=== PATIENT | male | born 1930 | race Caucasian/White ===

== ENCOUNTER → 2017-02-22 | Outpatient (CLI) | payer MEDICARE ==
--- NOTE | 2017-02-22 12:24 | REP ---
CT BRAIN WITHOUT CONTRAST: 02/22/2017. CLINICAL HISTORY: Mild cognitive impairment. FINDINGS: There are no prior studies. The noncontrast soft tissue and bone windows are reviewed for each slice level. Ventricles are midline, symmetric and dilated. They are proportionate to the cerebral atrophy which is moderate for age. Basal ganglia is symmetric. There is some periventricular hypodense white matter change bilaterally about the cerebral hemispheres consistent with chronic small vessel white matter ischemic changes. Atrophy is greatest in the temporal lobes. There is no vascular territory infarct, intracranial hemorrhage, mass or mass effect. Brainstem unremarkable. Cerebellum shows diffuse atrophy in a symmetric fashion. Basal cisterns intact. Mastoids and visualized sinuses are clear. There is deviation of the septum towards the right. The skull base and calvarium show no fracture or focal lesion. IMPRESSION: 1. Ventriculomegaly with moderate atrophy in proportion and with diffuse chronic white matter small vessel ischemic changes. Cerebellar atrophy noted as well. There is no acute infarct, hemorrhage, mass, mass effect or edema. 2. Brainstem unremarkable. Basal cisterns intact. Sinuses, mastoids, skull base and calvarium without acute finding. Signed by Kev Mendiola MD 02/22/2017 06:06 P
== END ==
LOC: M RAD 08:35
PROVIDERS: ATTEND Nurse Practitioner Adult Health
DX: G31.84 Mild cognitive impairment of uncertain or unknown etiology (principal)

== ENCOUNTER → 2019-12-25 | Outpatient (REF) | payer MEDICARE | LOC: M LAB REF 10:26 | PROVIDERS: ATTEND Dermatology | DX: L90.5 Scar conditions and fibrosis of skin (principal); L57.8 Other skin changes due to chronic exposure to nonionizing radiation ==

== ENCOUNTER 2021-11-25 00:09 | Inpatient (IN) | payer MEDICARE ==
[~2021-11-25] VITALS: Ht 170.2 cm; Wt 80.6 kg
[2021-11-25] MEDS ORDERED: ROSU20TA5 PO (00:45)
[2021-11-25] MEDS ORDERED: HYDR12.55 PO (00:45)
[2021-11-25] MEDS ORDERED: POTA20EL PO (00:45)
[2021-11-25] MEDS ORDERED: LOSA25TA13 PO (00:45)
[2021-11-25] MEDS ORDERED: ASPI81CH33 PO (00:45)
[2021-11-25] MEDS ORDERED: PROP20TA72 PO (00:45)
[2021-11-25] MEDS ORDERED: RIVA1CAP7 PO (00:45)
[2021-11-25] MEDS ORDERED: FLEC25TA PO (00:45)
[2021-11-25] MEDS ORDERED: NS 500 ML IV ONE (07:10)
[2021-11-25] MEDS ORDERED: NS 1,000 ML IV SCH (07:10)
[2021-11-25] MEDS ORDERED: ISOVUE-370 76% 100ML VIAL As Ordered ONE (07:35)
[2021-11-25 07:42] LABS: BASO # 0.1 10^3/uL (0.0-0.2); BASO % 0.7 % (0.0-1.0); EOS # 0.6 10^3/uL (0.0-0.5); EOS % 6.4 % (0.0-3.0); HEMATOCRIT 37.3 % (42.0-52.0); HEMOGLOBIN 12.7 g/dl (13.5-17.5); LYMPH # 1.7 10^3/uL (1.5-5.0); LYMPH % 19.6 % (24.0-44.0); MEAN CORPUSCULAR HEMOGLOBIN 30.9 pg (27.0-33.0); MEAN CORPUSCULAR VOLUME 90.8 fl (80.0-96.0); MONO # 0.8 10^3/uL (0.0-0.8); MONO % 9.6 % (2.0-8.0); NEUTROPHILS # 5.4 10^3/uL (1.5-8.5); NEUTROPHILS % 63.3 % (36.0-66.0); PLATELET COUNT, AUTOMATED 172 10^3/uL (150-450); RED BLOOD COUNT 4.11 10^6/uL (4.30-6.10); WHITE BLOOD COUNT 8.6 10^3/uL (4.0-10.0)
[2021-11-25 07:53] LABS: INR 1.06; PARTIAL THROMBOPLASTIN TIME 35.7 SECONDS (25.9-37.0); PROTHROMBIN TIME 14.2 SECONDS (12.7-14.5)
[2021-11-25] MEDS ORDERED: LIDOCAINE 2% 5ML JELLY UROJET TOP ONE (08:05)
[2021-11-25 08:20] LABS: CK-MB VALUE MASS 1.6 NG/ML (<3.6); MB/CK RELATIVE INDEX 0.63 (< OR =4)
[2021-11-25] MEDS ORDERED: ASPIRIN 81 MG CHEW TABLET PO SCH (09:00)
[2021-11-25 09:30] LABS: ALBUMIN 3.6 GM/DL (3.2-5.2); ALT/SGPT 24 U/L (12-78); BILIRUBIN,DIRECT 0.2 MG/DL (0.0-0.2); BILIRUBIN,TOTAL 0.5 MG/DL (0.2-1.0); BLOOD UREA NITROGEN 20 MG/DL (7-18); CALCIUM LEVEL 9.2 MG/DL (8.8-10.2); CARBON DIOXIDE LEVEL 30 MEQ/L (21-32); CHLORIDE LEVEL 107 MEQ/L (98-107); CREATININE FOR GFR 1.01 MG/DL (0.70-1.30); GLOMERULAR FILTRATION RATE > 60.0 (>35); GLUCOSE, FASTING 96 MG/DL (70-100); LIPASE 83 U/L (73-393); POTASSIUM SERUM 3.6 MEQ/L (3.5-5.1); SODIUM LEVEL 142 MEQ/L (136-145); TOTAL PROTEIN 6.3 GM/DL (6.4-8.2)
[2021-11-25] MEDS ORDERED: MED REC COMMENT (10:43)
[2021-11-25] MEDS ORDERED: MULTLIQ7 PO (10:43)
[2021-11-25] MEDS ORDERED: HOME MED LIST COMPLETE! XX SCH (10:55)
[2021-11-25 11:25] LABS: RSV AMPLIFICATION NEGATIVE (NEGATIVE)
[2021-11-25] MEDS ORDERED: ACETAMINOPHEN TAB 650MG DOSE (2X325MG) PO PRN (11:30)
[2021-11-25] MEDS ORDERED: PILL CUTTER 1 EACH XX PRN (12:30)
[2021-11-25 14:25] VITALS: BP 159/88
[2021-11-25] MEDS: POTASSIUM CHLORIDE 10% LIQ 20 MEQ/15 ML UDC PO SCH (15:30)
[2021-11-25] MEDS: hydroCHLOROthiazide 12.5 MG CAPSULE PO SCH (15:30)
[2021-11-25] MEDS: FLECAINIDE 50MG TABLET PO SCH (15:30)
[2021-11-25] MEDS: PROPRANOLOL 20 MG TAB PO SCH (15:30)
[2021-11-25] MEDS: ASPIRIN 325 MG TAB PO SCH (15:31)
[2021-11-25 20:16] VITALS: BP 135/98
[2021-11-25] MEDS: ROSUVASTATIN 10 MG TAB (CRESTOR) PO SCH (21:55)
[2021-11-25] MEDS: LOSARTAN 25 MG TAB PO SCH (21:58)
[2021-11-25 23:51] VITALS: BP 134/69
[2021-11-26] MEDS: PROPRANOLOL 20 MG TAB PO SCH ×3 (00:08→21:00)
[2021-11-26] MEDS: FLECAINIDE 50MG TABLET PO SCH ×3 (00:08→21:00)
[2021-11-26 04:41] VITALS: BP 135/74
[2021-11-26 06:24] LABS: HEMATOCRIT 33.9 % (42.0-52.0); HEMOGLOBIN 11.6 g/dl (13.5-17.5); MEAN CORPUSCULAR HEMOGLOBIN 31.2 pg (27.0-33.0); MEAN CORPUSCULAR HGB CONC 34.2 g/dl (32.0-36.5); MEAN CORPUSCULAR VOLUME 91.1 fl (80.0-96.0); PLATELET COUNT, AUTOMATED 177 10^3/uL (150-450); RED BLOOD COUNT 3.72 10^6/uL (4.30-6.10); WHITE BLOOD COUNT 11.3 10^3/uL (4.0-10.0)
[2021-11-26 06:45] LABS: BLOOD UREA NITROGEN 17 MG/DL (7-18); CALCIUM LEVEL 9.4 MG/DL (8.8-10.2); CARBON DIOXIDE LEVEL 31 MEQ/L (21-32); CHLORIDE LEVEL 108 MEQ/L (98-107); CREATININE FOR GFR 0.99 MG/DL (0.70-1.30); GLOMERULAR FILTRATION RATE > 60.0 (>35); GLUCOSE, FASTING 99 MG/DL (70-100); MAGNESIUM LEVEL 2.2 MG/DL (1.8-2.4); POTASSIUM SERUM 3.8 MEQ/L (3.5-5.1); SODIUM LEVEL 141 MEQ/L (136-145)
[2021-11-26 07:54] LABS: BASO % 0.3 % (0.0-1.0); EOS # 0.6 10^3/uL (0.0-0.5); EOS % 5.6 % (0.0-3.0); LYMPH # 1.6 10^3/uL (1.5-5.0); LYMPH % 13.5 % (24.0-44.0); MONO # 1.1 10^3/uL (0.0-0.8); MONO % 9.4 % (2.0-8.0); NEUTROPHILS # 8.1 10^3/uL (1.5-8.5); NEUTROPHILS % 70.9 % (36.0-66.0)
[2021-11-26 08:20] VITALS: BP 132/66
[2021-11-26] MEDS: ENOXAPARIN 40MG/0.4ML SYRINGE (J1650 PER 10MG) SC SCH (09:00)
[2021-11-26] MEDS: NYSTATIN 100,000 UNITS/GM TOPICAL PWD 15 GM TOP SCH ×2 (09:00→23:33)
[2021-11-26] MEDS: hydroCHLOROthiazide 12.5 MG CAPSULE PO SCH (09:00)
[2021-11-26] MEDS: POTASSIUM CHLORIDE 10% LIQ 20 MEQ/15 ML UDC PO SCH (09:00)
[2021-11-26] MEDS: ASPIRIN 325 MG TAB PO SCH (09:00)
[2021-11-26] MEDS: ASPIRIN 300 MG SUPP PR SCH (11:00)
[2021-11-26 12:00] VITALS: BP 165/72
[2021-11-26 17:47] VITALS: BP 150/80
[2021-11-26] MEDS ORDERED: ACETAMINOPHEN 650 MG SUPP PR ONE (18:45)
[2021-11-26 20:00] VITALS: BP 168/92
[2021-11-26] MEDS: ROSUVASTATIN 10 MG TAB (CRESTOR) PO SCH (21:00)
[2021-11-26] MEDS: LOSARTAN 25 MG TAB PO SCH (21:00)
[2021-11-26 23:34] VITALS: BP 163/76
[2021-11-26] MEDS: PIPERACILLIN/TAZOBACTAM SOD 3.375 GM in D5W MINI-BAG PLUS 50 ML IV SCH (23:34)
[2021-11-27] MEDS ORDERED: METOPROLOL 5 MG/5 ML VIAL IV ONE (01:00)
[2021-11-27 01:41] VITALS: BP 143/78
[2021-11-27 03:59] VITALS: BP 158/84
[2021-11-27] MEDS: PIPERACILLIN/TAZOBACTAM SOD 3.375 GM in D5W MINI-BAG PLUS 50 ML IV SCH ×4 (04:39→21:21)
[2021-11-27 05:58] LABS: HEMATOCRIT 35.6 % (42.0-52.0); HEMOGLOBIN 12.2 g/dl (13.5-17.5); MEAN CORPUSCULAR HEMOGLOBIN 30.9 pg (27.0-33.0); MEAN CORPUSCULAR HGB CONC 34.3 g/dl (32.0-36.5); MEAN CORPUSCULAR VOLUME 90.1 fl (80.0-96.0); PLATELET COUNT, AUTOMATED 165 10^3/uL (150-450); RED BLOOD COUNT 3.95 10^6/uL (4.30-6.10); WHITE BLOOD COUNT 10.9 10^3/uL (4.0-10.0)
[2021-11-27 06:26] LABS: BLOOD UREA NITROGEN 18 MG/DL (7-18); CALCIUM LEVEL 9.2 MG/DL (8.8-10.2); CARBON DIOXIDE LEVEL 30 MEQ/L (21-32); CHLORIDE LEVEL 105 MEQ/L (98-107); GLOMERULAR FILTRATION RATE > 60.0 (>35); GLUCOSE, FASTING 113 MG/DL (70-100); POTASSIUM SERUM 3.5 MEQ/L (3.5-5.1); SODIUM LEVEL 140 MEQ/L (136-145)
[2021-11-27 08:55] VITALS: BP 146/80
[2021-11-27] MEDS: ENOXAPARIN 40MG/0.4ML SYRINGE (J1650 PER 10MG) SC SCH (08:58)
[2021-11-27] MEDS: ASPIRIN 300 MG SUPP PR SCH (08:58)
[2021-11-27] MEDS: NYSTATIN 100,000 UNITS/GM TOPICAL PWD 15 GM TOP SCH ×2 (08:58→21:18)
[2021-11-27] MEDS: POTASSIUM CHLORIDE 10% LIQ 20 MEQ/15 ML UDC PO SCH (09:00)
[2021-11-27] MEDS: PROPRANOLOL 20 MG TAB PO SCH (09:00)
[2021-11-27] MEDS: FLECAINIDE 50MG TABLET PO SCH (09:00)
[2021-11-27] MEDS: hydroCHLOROthiazide 12.5 MG CAPSULE PO SCH (09:00)
[2021-11-27] MEDS ORDERED: ACETAMINOPHEN 650 MG SUPP PR PRN (09:05)
[2021-11-27] MEDS: D5W/0.45% SODIUM CHLORIDE 1,000 ML IV SCH (09:49)
[2021-11-27 12:27] VITALS: BP 144/62
[2021-11-27 15:53] LABS: BASO % 0.3 % (0.0-1.0); EOS # 0.2 10^3/uL (0.0-0.5); EOS % 2.2 % (0.0-3.0); HEMATOCRIT 35.4 % (42.0-52.0); HEMOGLOBIN 12.1 g/dl (13.5-17.5); LYMPH # 1.2 10^3/uL (1.5-5.0); LYMPH % 12.6 % (24.0-44.0); MEAN CORPUSCULAR HEMOGLOBIN 30.7 pg (27.0-33.0); MEAN CORPUSCULAR HGB CONC 34.2 g/dl (32.0-36.5); MEAN CORPUSCULAR VOLUME 89.8 fl (80.0-96.0); MONO % 10.5 % (2.0-8.0); NEUTROPHILS # 6.9 10^3/uL (1.5-8.5); NEUTROPHILS % 74.1 % (36.0-66.0); PLATELET COUNT, AUTOMATED 146 10^3/uL (150-450); RED BLOOD COUNT 3.94 10^6/uL (4.30-6.10); WHITE BLOOD COUNT 9.3 10^3/uL (4.0-10.0)
[2021-11-27 16:23] VITALS: BP 153/70
[2021-11-27] MEDS: BISACODYL 10 MG SUPP PR PRN (16:29)
[2021-11-27 19:35] VITALS: BP 157/71
[2021-11-28] VITALS: BP 139/78
[2021-11-28] MEDS: D5W/0.45% SODIUM CHLORIDE 1,000 ML IV SCH ×2 (02:04→09:06)
[2021-11-28 04:00] VITALS: BP 129/65
[2021-11-28] MEDS: PIPERACILLIN/TAZOBACTAM SOD 3.375 GM in D5W MINI-BAG PLUS 50 ML IV SCH ×4 (04:15→21:18)
[2021-11-28 06:26] LABS: HEMATOCRIT 32.6 % (42.0-52.0); HEMOGLOBIN 11.1 g/dl (13.5-17.5); MEAN CORPUSCULAR HEMOGLOBIN 30.7 pg (27.0-33.0); MEAN CORPUSCULAR VOLUME 90.3 fl (80.0-96.0); PLATELET COUNT, AUTOMATED 132 10^3/uL (150-450); RED BLOOD COUNT 3.61 10^6/uL (4.30-6.10); WHITE BLOOD COUNT 8.4 10^3/uL (4.0-10.0)
[2021-11-28 06:47] LABS: BLOOD UREA NITROGEN 13 MG/DL (7-18); CALCIUM LEVEL 8.8 MG/DL (8.8-10.2); CARBON DIOXIDE LEVEL 29 MEQ/L (21-32); CHLORIDE LEVEL 108 MEQ/L (98-107); GLOMERULAR FILTRATION RATE > 60.0 (>35); GLUCOSE, FASTING 135 MG/DL (70-100); POTASSIUM SERUM 3.2 MEQ/L (3.5-5.1); SODIUM LEVEL 142 MEQ/L (136-145)
[2021-11-28 08:00] VITALS: BP 133/62
[2021-11-28] MEDS: KCL 10MEQ/100ML SWI (KRUN) 10 MEQ in IV 1 EA IV SCH ×3 (09:04→12:08)
[2021-11-28] MEDS: NYSTATIN 100,000 UNITS/GM TOPICAL PWD 15 GM TOP SCH ×2 (09:05→21:18)
[2021-11-28] MEDS: ASPIRIN 300 MG SUPP PR SCH (09:06)
[2021-11-28] MEDS: ENOXAPARIN 40MG/0.4ML SYRINGE (J1650 PER 10MG) SC SCH (09:07)
[2021-11-28] MEDS ORDERED: POTASSIUM CHLORIDE 10MEQ SR TABLET PO ONE (11:40)
[2021-11-28] MEDS ORDERED: POTASSIUM CHLORIDE 10% LIQ 20 MEQ/15 ML UDC PO ONE (12:00)
[2021-11-28 16:00] VITALS: BP 137/78
[2021-11-28 16:41] LABS: BLOOD UREA NITROGEN 13 MG/DL (7-18); CALCIUM LEVEL 8.7 MG/DL (8.8-10.2); CARBON DIOXIDE LEVEL 29 MEQ/L (21-32); CHLORIDE LEVEL 106 MEQ/L (98-107); CREATININE FOR GFR 1.06 MG/DL (0.70-1.30); GLOMERULAR FILTRATION RATE > 60.0 (>35); GLUCOSE, FASTING 115 MG/DL (70-100); POTASSIUM SERUM 3.7 MEQ/L (3.5-5.1); SODIUM LEVEL 139 MEQ/L (136-145)
[2021-11-28 20:25] VITALS: BP 137/72
[2021-11-28] MEDS: ROSUVASTATIN 10 MG TAB (CRESTOR) PO SCH (21:17)
[2021-11-28] MEDS: PROPRANOLOL 20 MG TAB PO SCH (21:17)
[2021-11-28] MEDS: FLECAINIDE 50MG TABLET PO SCH (21:18)
[2021-11-28] MEDS: LOSARTAN 25 MG TAB PO SCH (21:18)
[2021-11-29] VITALS (9 sets, daily range): BP systolic 124–181; BP diastolic 62–99
[2021-11-29] MEDS: PIPERACILLIN/TAZOBACTAM SOD 3.375 GM in D5W MINI-BAG PLUS 50 ML IV SCH ×4 (03:09→21:27)
[2021-11-29 09:22] LABS: HEMATOCRIT 33.5 % (42.0-52.0); HEMOGLOBIN 11.5 g/dl (13.5-17.5); MEAN CORPUSCULAR HEMOGLOBIN 31.3 pg (27.0-33.0); MEAN CORPUSCULAR HGB CONC 34.3 g/dl (32.0-36.5); MEAN CORPUSCULAR VOLUME 91.3 fl (80.0-96.0); PLATELET COUNT, AUTOMATED 161 10^3/uL (150-450); RED BLOOD COUNT 3.67 10^6/uL (4.30-6.10); WHITE BLOOD COUNT 7.8 10^3/uL (4.0-10.0)
[2021-11-29 09:42] LABS: BLOOD UREA NITROGEN 14 MG/DL (7-18); CALCIUM LEVEL 9.1 MG/DL (8.8-10.2); CARBON DIOXIDE LEVEL 29 MEQ/L (21-32); CHLORIDE LEVEL 109 MEQ/L (98-107); CREATININE FOR GFR 1.05 MG/DL (0.70-1.30); GLOMERULAR FILTRATION RATE > 60.0 (>35); GLUCOSE, FASTING 102 MG/DL (70-100); MAGNESIUM LEVEL 2.2 MG/DL (1.8-2.4); POTASSIUM SERUM 3.7 MEQ/L (3.5-5.1); SODIUM LEVEL 144 MEQ/L (136-145)
[2021-11-29] MEDS: ASPIRIN 81 MG CHEW TABLET PO SCH (10:03)
[2021-11-29] MEDS: FLECAINIDE 50MG TABLET PO SCH ×2 (10:03→20:22)
[2021-11-29] MEDS: PROPRANOLOL 20 MG TAB PO SCH ×2 (10:04→20:22)
[2021-11-29] MEDS: NYSTATIN 100,000 UNITS/GM TOPICAL PWD 15 GM TOP SCH ×2 (10:04→20:22)
[2021-11-29] MEDS: D5W/0.45% SODIUM CHLORIDE 1,000 ML IV SCH ×2 (11:35→21:26)
[2021-11-29] MEDS: ACETAMINOPHEN TAB 650MG DOSE (2X325MG) PO PRN (11:38)
[2021-11-29] MEDS ORDERED: ceFAZolin 2 GM/D5W 50 ML IV BAG (J0690 PER 500MG) As Ordered ONE (16:15)
[2021-11-29] MEDS ORDERED: TRANEXAMIC ACID 100 MG/ML 10ML VIAL As Ordered ONE (16:15)
[2021-11-29] MEDS ORDERED: VANCOMYCIN 1000MG/20ML VIAL As Ordered ONE (16:16)
[2021-11-29] MEDS ORDERED: propofoL 200 MG/20 ML VIAL As Ordered ONE (17:21)
[2021-11-29] MEDS ORDERED: BUPIVACAINE HCL 0.5% 30ML VIAL As Ordered ONE (17:21)
[2021-11-29] MEDS ORDERED: KETAMINE HCL 200 MG/20 ML VIAL As Ordered ONE (17:21)
[2021-11-29] MEDS ORDERED: fentaNYL 100 MCG/2 ML INJECTION As Ordered ONE (17:21)
[2021-11-29] MEDS ORDERED: ACETAMINOPHEN 1000MG 100ML IV BTL (OFIRMEV) (J0131 PER 10MG) As Ordered ONE (17:21)
[2021-11-29] MEDS ORDERED: oxyCODONE 5MG TAB PO PRN (19:55)
[2021-11-29] MEDS ORDERED: fentaNYL 100 MCG/2 ML INJECTION IV PRN (19:55)
[2021-11-29] MEDS ORDERED: ONDANSETRON 4MG/2ML VIAL IV PRN (19:55)
[2021-11-29] MEDS ORDERED: LR 1,000 ML IV SCH (19:55)
[2021-11-29] MEDS: LOSARTAN 25 MG TAB PO SCH (20:22)
[2021-11-29] MEDS: ROSUVASTATIN 10 MG TAB (CRESTOR) PO SCH (20:22)
[2021-11-30] VITALS: BP 118/74
[2021-11-30] MEDS ORDERED: KETOROLAC 30 MG/ML 1ML VIAL IV PRN (01:25)
[2021-11-30] MEDS ORDERED: MORPHINE 2 MG/ML 1ML VIAL IV PRN (01:25)
[2021-11-30] MEDS: PIPERACILLIN/TAZOBACTAM SOD 3.375 GM in D5W MINI-BAG PLUS 50 ML IV SCH ×4 (03:23→20:43)
[2021-11-30 04:00] VITALS: BP 104/51
[2021-11-30 06:29] LABS: HEMATOCRIT 27.9 % (42.0-52.0); MEAN CORPUSCULAR HEMOGLOBIN 31.3 pg (27.0-33.0); MEAN CORPUSCULAR HGB CONC 34.1 g/dl (32.0-36.5); MEAN CORPUSCULAR VOLUME 91.8 fl (80.0-96.0); PLATELET COUNT, AUTOMATED 135 10^3/uL (150-450); RED BLOOD COUNT 3.04 10^6/uL (4.30-6.10); WHITE BLOOD COUNT 8.3 10^3/uL (4.0-10.0)
[2021-11-30] MEDS: D5W/0.45% SODIUM CHLORIDE 1,000 ML IV SCH (06:33)
[2021-11-30 06:34] LABS: HEMOGLOBIN 9.5 g/dl (13.5-17.5)
[2021-11-30 06:48] LABS: BLOOD UREA NITROGEN 18 MG/DL (7-18); CALCIUM LEVEL 8.4 MG/DL (8.8-10.2); CARBON DIOXIDE LEVEL 28 MEQ/L (21-32); CHLORIDE LEVEL 108 MEQ/L (98-107); CREATININE FOR GFR 1.19 MG/DL (0.70-1.30); GLOMERULAR FILTRATION RATE > 60.0 (>35); GLUCOSE, FASTING 159 MG/DL (70-100); POTASSIUM SERUM 3.1 MEQ/L (3.5-5.1); SODIUM LEVEL 141 MEQ/L (136-145)
[2021-11-30 08:00] VITALS: BP 135/67
[2021-11-30] MEDS ORDERED: POTASSIUM CHLORIDE 10% LIQ 20 MEQ/15 ML UDC PO ONE (08:00)
[2021-11-30] MEDS: FLECAINIDE 50MG TABLET PO SCH ×2 (09:15→20:42)
[2021-11-30] MEDS: ASPIRIN 81 MG CHEW TABLET PO SCH (09:15)
[2021-11-30] MEDS: NYSTATIN 100,000 UNITS/GM TOPICAL PWD 15 GM TOP SCH ×2 (09:16→20:43)
[2021-11-30] MEDS: PROPRANOLOL 20 MG TAB PO SCH ×2 (09:20→20:49)
[2021-11-30] MEDS ORDERED: MOM 30ML SUSPENSION UDC PO PRN (10:55)
[2021-11-30] MEDS ORDERED: MIRALAX *UNIT DOSE* 17GM PACKET PO PRN (10:55)
[2021-11-30] MEDS ORDERED: SENOKOT S TAB PO PRN (10:55)
[2021-11-30] MEDS: BISACODYL 10 MG SUPP PR PRN (11:08)
[2021-11-30 12:08] LABS: HEMATOCRIT 27.3 % (42.0-52.0); HEMOGLOBIN 9.6 g/dl (13.5-17.5)
[2021-11-30 14:00] VITALS: BP 113/56
[2021-11-30] MEDS: ROSUVASTATIN 10 MG TAB (CRESTOR) PO SCH (20:40)
[2021-11-30] MEDS: ENOXAPARIN 40MG/0.4ML SYRINGE (J1650 PER 10MG) SC SCH (20:41)
[2021-11-30] MEDS: LOSARTAN 25 MG TAB PO SCH (20:43)
[2021-11-30 23:00] VITALS: BP 112/80
[2021-12-01] MEDS: PIPERACILLIN/TAZOBACTAM SOD 3.375 GM in D5W MINI-BAG PLUS 50 ML IV SCH ×4 (04:49→22:23)
[2021-12-01 08:52] LABS: BASO % 0.2 % (0.0-1.0); EOS # 0.5 10^3/uL (0.0-0.5); EOS % 5.2 % (0.0-3.0); HEMATOCRIT 28.4 % (42.0-52.0); HEMOGLOBIN 9.6 g/dl (13.5-17.5); LYMPH # 1.2 10^3/uL (1.5-5.0); LYMPH % 12.6 % (24.0-44.0); MEAN CORPUSCULAR HEMOGLOBIN 31.2 pg (27.0-33.0); MEAN CORPUSCULAR HGB CONC 33.8 g/dl (32.0-36.5); MEAN CORPUSCULAR VOLUME 92.2 fl (80.0-96.0); MONO % 9.7 % (2.0-8.0); NEUTROPHILS # 7.1 10^3/uL (1.5-8.5); NEUTROPHILS % 71.8 % (36.0-66.0); PLATELET COUNT, AUTOMATED 151 10^3/uL (150-450); RED BLOOD COUNT 3.08 10^6/uL (4.30-6.10); WHITE BLOOD COUNT 9.9 10^3/uL (4.0-10.0)
[2021-12-01 09:09] LABS: BLOOD UREA NITROGEN 22 MG/DL (7-18); CALCIUM LEVEL 8.7 MG/DL (8.8-10.2); CARBON DIOXIDE LEVEL 27 MEQ/L (21-32); CHLORIDE LEVEL 111 MEQ/L (98-107); CREATININE FOR GFR 1.14 MG/DL (0.70-1.30); GLOMERULAR FILTRATION RATE > 60.0 (>35); GLUCOSE, FASTING 129 MG/DL (70-100); MAGNESIUM LEVEL 2.3 MG/DL (1.8-2.4); POTASSIUM SERUM 3.4 MEQ/L (3.5-5.1); SODIUM LEVEL 142 MEQ/L (136-145)
[2021-12-01] MEDS: ASPIRIN 81 MG CHEW TABLET PO SCH (09:09)
[2021-12-01] MEDS: FLECAINIDE 50MG TABLET PO SCH ×2 (09:09→21:14)
[2021-12-01] MEDS: NYSTATIN 100,000 UNITS/GM TOPICAL PWD 15 GM TOP SCH ×2 (09:10→21:16)
[2021-12-01] MEDS: RIVASTIGMINE TARTRATE 6 MG PO SCH ×2 (09:10→21:15)
[2021-12-01] MEDS: PROPRANOLOL 20 MG TAB PO SCH ×2 (09:12→21:14)
[2021-12-01] MEDS ORDERED: POTASSIUM CHLORIDE 10% LIQ 20 MEQ/15 ML UDC PO ONE (10:15)
[2021-12-01] MEDS ORDERED: E-Z-PAQUE 96% w/w SUSP 176GM BTL As Ordered ONE (13:36)
[2021-12-01] MEDS ORDERED: VARIBAR PUDDING 40% w/v 230ML TUBE As Ordered ONE (13:36)
[2021-12-01] MEDS ORDERED: VARIBAR NECTAR 40% w/v 240ML SUSP BTL As Ordered ONE (13:36)
[2021-12-01] MEDS ORDERED: BARIUM SULFATE 700 MG TABLET (E-Z-DISK) As Ordered ONE (13:37)
[2021-12-01] MEDS: ENOXAPARIN 40MG/0.4ML SYRINGE (J1650 PER 10MG) SC SCH (21:13)
[2021-12-01] MEDS: LOSARTAN 25 MG TAB PO SCH (21:14)
[2021-12-01] MEDS: ROSUVASTATIN 10 MG TAB (CRESTOR) PO SCH (21:15)
[2021-12-02] MEDS: PIPERACILLIN/TAZOBACTAM SOD 3.375 GM in D5W MINI-BAG PLUS 50 ML IV SCH ×4 (04:38→22:33)
[2021-12-02 06:59] LABS: BASO % 0.3 % (0.0-1.0); EOS # 0.7 10^3/uL (0.0-0.5); EOS % 7.1 % (0.0-3.0); HEMATOCRIT 25.8 % (42.0-52.0); HEMOGLOBIN 8.6 g/dl (13.5-17.5); LYMPH # 1.1 10^3/uL (1.5-5.0); LYMPH % 11.9 % (24.0-44.0); MEAN CORPUSCULAR HEMOGLOBIN 30.7 pg (27.0-33.0); MEAN CORPUSCULAR HGB CONC 33.3 g/dl (32.0-36.5); MEAN CORPUSCULAR VOLUME 92.1 fl (80.0-96.0); MONO # 0.9 10^3/uL (0.0-0.8); MONO % 9.6 % (2.0-8.0); NEUTROPHILS # 6.6 10^3/uL (1.5-8.5); NEUTROPHILS % 70.5 % (36.0-66.0); PLATELET COUNT, AUTOMATED 155 10^3/uL (150-450); WHITE BLOOD COUNT 9.4 10^3/uL (4.0-10.0)
[2021-12-02 07:15] LABS: BLOOD UREA NITROGEN 25 MG/DL (7-18); CALCIUM LEVEL 8.3 MG/DL (8.8-10.2); CARBON DIOXIDE LEVEL 28 MEQ/L (21-32); CHLORIDE LEVEL 112 MEQ/L (98-107); CREATININE FOR GFR 1.04 MG/DL (0.70-1.30); GLOMERULAR FILTRATION RATE > 60.0 (>35); GLUCOSE, FASTING 113 MG/DL (70-100); MAGNESIUM LEVEL 2.2 MG/DL (1.8-2.4); POTASSIUM SERUM 3.6 MEQ/L (3.5-5.1); SODIUM LEVEL 144 MEQ/L (136-145)
[2021-12-02] MEDS ORDERED: POTASSIUM CHLORIDE 10% LIQ 20 MEQ/15 ML UDC PO ONE (07:20)
[2021-12-02] MEDS: PROPRANOLOL 20 MG TAB PO SCH ×2 (08:57→20:31)
[2021-12-02] MEDS: NYSTATIN 100,000 UNITS/GM TOPICAL PWD 15 GM TOP SCH ×2 (08:58→20:33)
[2021-12-02] MEDS: FLECAINIDE 50MG TABLET PO SCH ×2 (08:58→20:31)
[2021-12-02] MEDS: RIVASTIGMINE TARTRATE 6 MG PO SCH ×2 (08:58→20:32)
[2021-12-02] MEDS: ASPIRIN 81 MG CHEW TABLET PO SCH (08:59)
[2021-12-02 12:29] LABS: HEMATOCRIT 28.9 % (42.0-52.0); HEMOGLOBIN 9.8 g/dl (13.5-17.5)
[2021-12-02] MEDS: ENOXAPARIN 40MG/0.4ML SYRINGE (J1650 PER 10MG) SC SCH (20:32)
[2021-12-02] MEDS: ROSUVASTATIN 10 MG TAB (CRESTOR) PO SCH (20:32)
[2021-12-02] MEDS: LOSARTAN 25 MG TAB PO SCH (20:32)
[2021-12-03 06:00] VITALS: BP 145/78
[2021-12-03 06:28] LABS: BASO # 0.1 10^3/uL (0.0-0.2); BASO % 0.7 % (0.0-1.0); EOS # 0.9 10^3/uL (0.0-0.5); EOS % 10.4 % (0.0-3.0); HEMATOCRIT 26.3 % (42.0-52.0); HEMOGLOBIN 8.7 g/dl (13.5-17.5); LYMPH # 1.3 10^3/uL (1.5-5.0); LYMPH % 15.8 % (24.0-44.0); MEAN CORPUSCULAR HEMOGLOBIN 30.7 pg (27.0-33.0); MEAN CORPUSCULAR HGB CONC 33.1 g/dl (32.0-36.5); MEAN CORPUSCULAR VOLUME 92.9 fl (80.0-96.0); MONO # 0.8 10^3/uL (0.0-0.8); MONO % 9.3 % (2.0-8.0); NEUTROPHILS # 5.3 10^3/uL (1.5-8.5); NEUTROPHILS % 63.2 % (36.0-66.0); PLATELET COUNT, AUTOMATED 185 10^3/uL (150-450); RED BLOOD COUNT 2.83 10^6/uL (4.30-6.10); WHITE BLOOD COUNT 8.5 10^3/uL (4.0-10.0)
[2021-12-03 06:48] LABS: BLOOD UREA NITROGEN 27 MG/DL (7-18); CALCIUM LEVEL 8.5 MG/DL (8.8-10.2); CARBON DIOXIDE LEVEL 29 MEQ/L (21-32); CHLORIDE LEVEL 115 MEQ/L (98-107); CREATININE FOR GFR 0.89 MG/DL (0.70-1.30); GLOMERULAR FILTRATION RATE > 60.0 (>35); GLUCOSE, FASTING 115 MG/DL (70-100); MAGNESIUM LEVEL 2.3 MG/DL (1.8-2.4); POTASSIUM SERUM 3.9 MEQ/L (3.5-5.1); SODIUM LEVEL 147 MEQ/L (136-145)
[2021-12-03] MEDS: FLECAINIDE 50MG TABLET PO SCH ×2 (08:37→20:59)
[2021-12-03] MEDS: PROPRANOLOL 20 MG TAB PO SCH ×2 (08:40→21:08)
[2021-12-03] MEDS: NYSTATIN 100,000 UNITS/GM TOPICAL PWD 15 GM TOP SCH ×2 (08:41→21:05)
[2021-12-03] MEDS: ASPIRIN 81 MG CHEW TABLET PO SCH (08:41)
[2021-12-03] MEDS: RIVASTIGMINE TARTRATE 6 MG PO SCH ×2 (09:19→21:03)
[2021-12-03] MEDS: ACETAMINOPHEN TAB 650MG DOSE (2X325MG) PO PRN ×2 (13:33→20:59)
[2021-12-03 20:29] VITALS: BP 156/80
[2021-12-03] MEDS: ROSUVASTATIN 10 MG TAB (CRESTOR) PO SCH (20:59)
[2021-12-03] MEDS: LOSARTAN 25 MG TAB PO SCH (21:00)
[2021-12-03] MEDS: ENOXAPARIN 40MG/0.4ML SYRINGE (J1650 PER 10MG) SC SCH (21:01)
[2021-12-04 06:00] VITALS: BP 146/82
[2021-12-04 06:38] LABS: BASO % 0.5 % (0.0-1.0); EOS # 0.9 10^3/uL (0.0-0.5); EOS % 10.8 % (0.0-3.0); HEMATOCRIT 27.3 % (42.0-52.0); HEMOGLOBIN 9.2 g/dl (13.5-17.5); LYMPH # 1.2 10^3/uL (1.5-5.0); LYMPH % 15.2 % (24.0-44.0); MEAN CORPUSCULAR HEMOGLOBIN 31.5 pg (27.0-33.0); MEAN CORPUSCULAR HGB CONC 33.7 g/dl (32.0-36.5); MEAN CORPUSCULAR VOLUME 93.5 fl (80.0-96.0); MONO # 0.7 10^3/uL (0.0-0.8); MONO % 9.1 % (2.0-8.0); NEUTROPHILS # 5.1 10^3/uL (1.5-8.5); NEUTROPHILS % 63.4 % (36.0-66.0); PLATELET COUNT, AUTOMATED 228 10^3/uL (150-450); RED BLOOD COUNT 2.92 10^6/uL (4.30-6.10)
[2021-12-04 06:56] LABS: BLOOD UREA NITROGEN 25 MG/DL (7-18); CALCIUM LEVEL 8.7 MG/DL (8.8-10.2); CARBON DIOXIDE LEVEL 28 MEQ/L (21-32); CHLORIDE LEVEL 113 MEQ/L (98-107); CREATININE FOR GFR 0.82 MG/DL (0.70-1.30); GLOMERULAR FILTRATION RATE > 60.0 (>35); GLUCOSE, FASTING 106 MG/DL (70-100); MAGNESIUM LEVEL 2.4 MG/DL (1.8-2.4); POTASSIUM SERUM 3.6 MEQ/L (3.5-5.1); SODIUM LEVEL 144 MEQ/L (136-145)
[2021-12-04] MEDS: ASPIRIN 81 MG CHEW TABLET PO SCH (08:48)
[2021-12-04] MEDS: PROPRANOLOL 20 MG TAB PO SCH ×2 (08:49→21:39)
[2021-12-04] MEDS: ACETAMINOPHEN TAB 650MG DOSE (2X325MG) PO PRN ×2 (08:49→21:39)
[2021-12-04] MEDS: FLECAINIDE 50MG TABLET PO SCH ×2 (08:49→21:40)
[2021-12-04] MEDS: RIVASTIGMINE TARTRATE 6 MG PO SCH ×2 (08:50→21:38)
[2021-12-04] MEDS: NYSTATIN 100,000 UNITS/GM TOPICAL PWD 15 GM TOP SCH ×2 (08:50→21:00)
[2021-12-04] MEDS: ENOXAPARIN 40MG/0.4ML SYRINGE (J1650 PER 10MG) SC SCH (21:39)
[2021-12-04] MEDS: LOSARTAN 25 MG TAB PO SCH (21:40)
[2021-12-04] MEDS: ROSUVASTATIN 10 MG TAB (CRESTOR) PO SCH (21:40)
[2021-12-05 06:00] VITALS: BP 112/63
[2021-12-05] MEDS: NYSTATIN 100,000 UNITS/GM TOPICAL PWD 15 GM TOP SCH ×2 (09:06→21:03)
[2021-12-05] MEDS: RIVASTIGMINE TARTRATE 6 MG PO SCH ×2 (09:07→21:04)
[2021-12-05] MEDS: ASPIRIN 81 MG CHEW TABLET PO SCH (09:07)
[2021-12-05] MEDS: FLECAINIDE 50MG TABLET PO SCH ×2 (09:08→21:07)
[2021-12-05] MEDS: PROPRANOLOL 20 MG TAB PO SCH ×2 (09:08→21:06)
[2021-12-05] MEDS: ACETAMINOPHEN TAB 650MG DOSE (2X325MG) PO PRN (15:40)
[2021-12-05] MEDS: ENOXAPARIN 40MG/0.4ML SYRINGE (J1650 PER 10MG) SC SCH (21:04)
[2021-12-05] MEDS: ROSUVASTATIN 10 MG TAB (CRESTOR) PO SCH (21:07)
[2021-12-05] MEDS: LOSARTAN 25 MG TAB PO SCH (21:07)
[2021-12-06 06:00] VITALS: BP 131/74
[2021-12-06] MEDS: RIVASTIGMINE TARTRATE 6 MG PO SCH (08:57)
[2021-12-06] MEDS: NYSTATIN 100,000 UNITS/GM TOPICAL PWD 15 GM TOP SCH (08:58)
[2021-12-06 09:00] VITALS: BP 130/75
[2021-12-06] MEDS: PROPRANOLOL 20 MG TAB PO SCH (09:00)
[2021-12-06] MEDS: FLECAINIDE 50MG TABLET PO SCH (09:01)
[2021-12-06] MEDS: ASPIRIN 81 MG CHEW TABLET PO SCH (09:01)
[2021-12-06] MEDS ORDERED: ASPI325T57 PO (09:48)
[2021-12-06] MEDS ORDERED: MIRA1POW3 PO (09:50)
[2021-12-06] MEDS ORDERED: BISA10SU PR (09:50)
[2021-12-06] MEDS ORDERED: NYST10006 TOP (09:50)
== END 2021-12-06 12:15 | DRG 981 ==
LOC: M ED 00:09 → M ED INP 00:10 → ENRESERV 12:23 → OBSVTOIN 12:42 → M PCU 13:30 → M MS5PR 11-30 11:32
PROVIDERS: ADMIT Internal Medicine; ATTEND Internal Medicine Nephrology
PROC: 0SRS0JZ Replacement of Left Hip Joint, Femoral Surface with Synthetic Substitute, Open Approach (ICD-10-PCS; principal; 2021-11-29 16:30)
DX: G45.9 Transient cerebral ischemic attack, unspecified (principal); J69.0 Pneumonitis due to inhalation of food and vomit; S72.002A Fracture of unspecified part of neck of left femur, initial encounter for closed fracture; G31.83 Neurocognitive disorder with Lewy bodies; F02.80 Dementia in other diseases classified elsewhere, unspecified severity, without behavioral disturbance, psychotic disturbance, mood disturbance, and anxiety; Z66 Do not resuscitate; I10 Essential (primary) hypertension; E78.5 Hyperlipidemia, unspecified; Z95.0 Presence of cardiac pacemaker; D64.9 Anemia, unspecified; Z85.828 Personal history of other malignant neoplasm of skin; Z87.891 Personal history of nicotine dependence; R53.1 Weakness; Z20.822 Contact with and (suspected) exposure to COVID-19; Z79.82 Long term (current) use of aspirin; Z79.899 Other long term (current) drug therapy; R13.10 Dysphagia, unspecified; N49.2 Inflammatory disorders of scrotum; W01.0XXA Fall on same level from slipping, tripping and stumbling without subsequent striking against object, initial encounter; Y92.232 Corridor of hospital as the place of occurrence of the external cause; D69.6 Thrombocytopenia, unspecified; E87.6 Hypokalemia; G25.0 Essential tremor; I49.3 Ventricular premature depolarization

== ENCOUNTER → 2021-12-13 | Outpatient (REF) | payer MEDICARE ==
[~2021-12-13] MED LIST: ASPI325T57 PO; ASPI81CH33 PO; BISA10SU PR; FLEC25TA PO; HYDR12.55 PO; LOSA25TA13 PO; MED REC COMMENT; MIRA1POW3 PO; MULTLIQ7 PO; NYST10006 TOP; POTA20EL PO; PROP20TA72 PO; RIVA1CAP7 PO; ROSU20TA5 PO
[2021-12-13 11:38] LABS: HEMATOCRIT 30.7 % (42.0-52.0); HEMOGLOBIN 10.3 g/dl (13.5-17.5); MEAN CORPUSCULAR HEMOGLOBIN 31.8 pg (27.0-33.0); MEAN CORPUSCULAR HGB CONC 33.6 g/dl (32.0-36.5); MEAN CORPUSCULAR VOLUME 94.8 fl (80.0-96.0); PLATELET COUNT, AUTOMATED 340 10^3/uL (150-450); RED BLOOD COUNT 3.24 10^6/uL (4.30-6.10); WHITE BLOOD COUNT 11.9 10^3/uL (4.0-10.0)
[2021-12-13 12:18] LABS: BLOOD UREA NITROGEN 21 MG/DL (7-18); CALCIUM LEVEL 9.6 MG/DL (8.8-10.2); CARBON DIOXIDE LEVEL 28 MEQ/L (21-32); CHLORIDE LEVEL 106 MEQ/L (98-107); CREATININE FOR GFR 0.97 MG/DL (0.70-1.30); GLOMERULAR FILTRATION RATE > 60.0 (>35); GLUCOSE, FASTING 194 MG/DL (70-100); POTASSIUM SERUM 4.1 MEQ/L (3.5-5.1); SODIUM LEVEL 141 MEQ/L (136-145)
[2021-12-13 15:29] LABS: APPEARANCE, URINE CLEAR (CLEAR); BACTERIA, URINE AUTO NEGATIVE (NEGATIVE); BILIRUBIN, URINE AUTO NEGATIVE (NEGATIVE); BLOOD, URINE BLOOD 2+ (NEGATIVE); COLOR, URINE YELLOW (YELLOW); GLUCOSE, URINE (UA) AUTO NEGATIVE (NEGATIVE); KETONE, URINE AUTO NEGATIVE (NEGATIVE); LEUKOCYTE ESTERASE, URINE AUTO NEGATIVE (NEGATIVE); MUCUS, URINE SMALL (NEGATIVE); NITRITE, URINE AUTO NEGATIVE (NEGATIVE); PROTEIN, URINE AUTO NEGATIVE (NEGATIVE); RBC, URINE AUTO 48 /HPF (0-3); SPECIFIC GRAVITY URINE AUTO 1.019 (1.002-1.035); SQUAMOUS EPITHELIAL CELL UR AU 0 /HPF (0-6); UROBILINOGEN, URINE AUTO 0.2 mg/dL (0.0-2.0); WBC, URINE AUTO 9 /HPF (0-3)
== END ==
LOC: SKLAB5 10:44
PROVIDERS: ATTEND Neuromusculoskeletal Medicine & OMM
DX: R50.9 Fever, unspecified (principal); I51.7 Cardiomegaly; I27.20 Pulmonary hypertension, unspecified; Z95.0 Presence of cardiac pacemaker

== ENCOUNTER → 2021-12-14 | Outpatient (REF) | payer MEDICARE | LOC: SKLAB5 10:05 | PROVIDERS: ATTEND Neuromusculoskeletal Medicine & OMM | DX: R63.5 Abnormal weight gain (principal); R09.89 Other specified symptoms and signs involving the circulatory and respiratory systems; Z96.642 Presence of left artificial hip joint ==

== ENCOUNTER → 2021-12-15 | Outpatient (REF) | LOC: SKLAB7 12-14 07:00 | PROVIDERS: ATTEND Neuromusculoskeletal Medicine & OMM | DX: S72.002D Fracture of unspecified part of neck of left femur, subsequent encounter for closed fracture with routine healing (principal); M11.262 Other chondrocalcinosis, left knee; Z96.642 Presence of left artificial hip joint ==

== ENCOUNTER → 2022-01-02 | Outpatient (REF) | payer MEDICARE ==
[2022-01-02 13:26] LABS: HEMOGLOBIN 10.2 g/dl (13.5-17.5); MEAN CORPUSCULAR HEMOGLOBIN 30.2 pg (27.0-33.0); MEAN CORPUSCULAR HGB CONC 31.9 g/dl (32.0-36.5); MEAN CORPUSCULAR VOLUME 94.7 fl (80.0-96.0); PLATELET COUNT, AUTOMATED 323 10^3/uL (150-450); RED BLOOD COUNT 3.38 10^6/uL (4.30-6.10)
[2022-01-02 13:47] LABS: BLOOD UREA NITROGEN 28 MG/DL (7-18); CALCIUM LEVEL 10.1 MG/DL (8.8-10.2); CARBON DIOXIDE LEVEL 27 MEQ/L (21-32); CHLORIDE LEVEL 111 MEQ/L (98-107); GLOMERULAR FILTRATION RATE > 60.0 (>35); GLUCOSE, FASTING 120 MG/DL (70-100); POTASSIUM SERUM 4.2 MEQ/L (3.5-5.1); SODIUM LEVEL 141 MEQ/L (136-145)
== END ==
LOC: SKLAB5 10:54
PROVIDERS: ATTEND Neuromusculoskeletal Medicine & OMM
DX: R50.9 Fever, unspecified (principal); I51.7 Cardiomegaly; Z95.0 Presence of cardiac pacemaker

== ENCOUNTER → 2022-01-09 | Outpatient (REF) | payer MEDICARE ==
[2022-01-09 09:07] LABS: BLOOD UREA NITROGEN 20 MG/DL (7-18); CALCIUM LEVEL 9.7 MG/DL (8.8-10.2); CARBON DIOXIDE LEVEL 28 MEQ/L (21-32); CHLORIDE LEVEL 107 MEQ/L (98-107); CREATININE FOR GFR 0.92 MG/DL (0.70-1.30); GLOMERULAR FILTRATION RATE > 60.0 (>35); GLUCOSE, FASTING 110 MG/DL (70-100); POTASSIUM SERUM 4.1 MEQ/L (3.5-5.1); SODIUM LEVEL 141 MEQ/L (136-145)
== END ==
LOC: SKLAB5 09:29
PROVIDERS: ATTEND Neuromusculoskeletal Medicine & OMM
DX: R50.9 Fever, unspecified (principal); R05.9 Cough, unspecified

== ENCOUNTER → 2022-01-19 | Outpatient (REF) | payer MEDICARE ==
[2022-01-19 11:23] LABS: HEMATOCRIT 32.5 % (42.0-52.0); HEMOGLOBIN 10.1 g/dl (13.5-17.5); MEAN CORPUSCULAR HEMOGLOBIN 29.2 pg (27.0-33.0); MEAN CORPUSCULAR HGB CONC 31.1 g/dl (32.0-36.5); MEAN CORPUSCULAR VOLUME 93.9 fl (80.0-96.0); PLATELET COUNT, AUTOMATED 419 10^3/uL (150-450); RED BLOOD COUNT 3.46 10^6/uL (4.30-6.10); WHITE BLOOD COUNT 11.1 10^3/uL (4.0-10.0)
== END ==
LOC: SKLAB5 12:27
PROVIDERS: ATTEND Neuromusculoskeletal Medicine & OMM
DX: D64.9 Anemia, unspecified (principal)

== ENCOUNTER → 2022-01-23 | Outpatient (REF) | payer MEDICARE ==
[2022-01-23 22:57] LABS: APPEARANCE, URINE HAZY (CLEAR); BACTERIA, URINE AUTO NEGATIVE (NEGATIVE); BILIRUBIN, URINE AUTO NEGATIVE (NEGATIVE); BLOOD, URINE BLOOD 1+ (NEGATIVE); COLOR, URINE YELLOW (YELLOW); GLUCOSE, URINE (UA) AUTO NEGATIVE (NEGATIVE); KETONE, URINE AUTO NEGATIVE (NEGATIVE); LEUKOCYTE ESTERASE, URINE AUTO NEGATIVE (NEGATIVE); MUCUS, URINE SMALL (NEGATIVE); NITRITE, URINE AUTO NEGATIVE (NEGATIVE); PROTEIN, URINE AUTO NEGATIVE (NEGATIVE); RBC, URINE AUTO 15 /HPF (0-3); SQUAMOUS EPITHELIAL CELL UR AU 0 /HPF (0-6); UROBILINOGEN, URINE AUTO 0.2 mg/dL (0.0-2.0); WBC, URINE AUTO 3 /HPF (0-3)
[2022-01-24 00:06] LABS: HEMATOCRIT 28.7 % (42.0-52.0); MEAN CORPUSCULAR HEMOGLOBIN 28.9 pg (27.0-33.0); MEAN CORPUSCULAR HGB CONC 31.4 g/dl (32.0-36.5); MEAN CORPUSCULAR VOLUME 92.3 fl (80.0-96.0); PLATELET COUNT, AUTOMATED 273 10^3/uL (150-450); RED BLOOD COUNT 3.11 10^6/uL (4.30-6.10); WHITE BLOOD COUNT 11.5 10^3/uL (4.0-10.0)
== END ==
LOC: SKLAB5 21:48
PROVIDERS: ATTEND Neuromusculoskeletal Medicine & OMM
DX: R50.9 Fever, unspecified (principal)